=== PATIENT | male | born 1975 | race Caucasian/White ===

== ENCOUNTER 2017-08-20 18:36 | Emergency (ER) | payer BC, OTHER ==
[~2017-08-20] VITALS: Ht 180.3 cm; Wt 107.2 kg
[~2017-08-20 18:36] MED LIST: CLC100 PO; CPR500 PO; METR-163 PO
[2017-08-20 19:09] VITALS: Ht 180.3 cm; Wt 107.2 kg
[2017-08-20] MEDS ORDERED: SODIUM CHLORIDE 0.9% 1000ML 1,000 ML IV STA (20:09)
[2017-08-20] MEDS ORDERED: HYDROmorphone INJ 0.5 MG/0.5 ML SYR IV STA (20:17)
[2017-08-20] MEDS ORDERED: ONDANSETRON INJ 2 MG/ML 2 ML VIAL IV STA (20:17)
--- NOTE | 2017-08-20 20:23 | EMERGENCY ROOM VISIT NOTE ---
History Report prepared by Rodrigo: Wilberto Hathaway Under the Supervision of: Dr. Eduardo Saini M.D. First contact with patient: 20:02 Chief Complaint: ABDOMINAL PAIN Stated Complaint: ABDOMINAL PAIN UPPER LEFT Nursing Triage Summary: patient with history of diverticulitis. started with left sided abdominal pain with nausea no vomiting pain has gotten worse. patient has been constipated for the last couple of days History of Present Illness The patient is a 42 year old male who presents to the Emergency Room with complaints of worsening left lower quadrant abdominal pain beginning yesterday. The patient states his discomfort started yesterday with an upset stomach. He reports his pain worsened today at work. The patient notes he has a history of diverticulitis, and it feels very similar to his previous episode. He states he developed a fever of 100.8 degrees, but he did not take anything for it. The patient reports he feels constipated and tried stool softener. He notes it did not work, and he passed a little amount of black stool. The patient states he is also nauseous. He denies vomiting, diarrhea, bloody stool, chest pain, shortness of breath, and trauma. Source of History: patient Onset: yesterday Position: abdomen (LLQ) Timing: worsening Associated Symptoms: + fevers (100.8), + nausea, No chest pain, No SOB, No vomiting, No diarrhea Note: Associated symptoms: black stool Denies: blood stool and trauma Review of Systems See HPI for pertinent positives and negatives. A total of ten systems were reviewed and were otherwise negative. Past Medical & Surgical Medical Problems: (1) Diverticulitis Family History Patient reports no known family medical history. Social History Smoking Status: Former Smoker Marital Status: Housing Status: lives with family Occupation Status: employed Current/Historical Medications Scheduled Ciprofloxacin Hcl (Cipro), 500 MG PO BID Metronidazole (Flagyl), 500 MG PO TID Allergies Coded Allergies: No Known Allergies (Verified , 08/20/17) Physical Exam Vital Signs Date Time Temp Pulse Resp B/P (MAP) Pulse Ox O2 Delivery O2 Flow Rate FiO2 08/20/17 23:19 79 18 117/86 99 08/20/17 22:49 37.2 08/20/17 21:37 96 16 114/69 95 Room Air 08/20/17 20:51 95 20 134/80 94 Room Air 08/20/17 19:09 37.4 113 20 137/83 94 Room Air Physical Exam Physical Exam GENERAL: He is oriented to person, place, and time. He appears well-developed and well-nourished. He does not appear distressed. ____ HENT: Exam performed. Head: Normocephalic and atraumatic. Right Ear: External ear normal. No mastoid tenderness. Left Ear: External ear normal. No mastoid tenderness. Mouth/Throat: The oropharynx is clear and moist. No trismus in the jaw. No dental abscesses or uvula swelling. No oropharyngeal exudate or tonsillar abscesses. ____ EYES: Conjunctivae and EOM are normal. Pupils are equal, round, and reactive to light. Right eye exhibits no discharge. Left eye exhibits no discharge. No scleral icterus. ____ NECK: Normal range of motion. Neck supple. No JVD present. No spinous process tenderness present. No carotid bruit present. No rigidity. No tracheal deviation and normal range of motion present. No Brudzinski's sign and no Kernig 's sign noted. ____ CV: Tachycardic rate, regular rhythm, normal heart sounds and intact distal pulses. There is no peripheral edema. Palpable radial pulses bue. ____ PULM/CHEST: Effort normal and breath sounds normal. No respiratory distress. No stridor. He has no wheezes. He has no rales. Chest Wall: He exhibits no tenderness. ____ ABD: The abdomen is soft. Bowel sounds are normal. He has no distension. No mass is present. There is tenderness to palpation to the LLQ. There is no rebound, no guarding, no Simental's sign and no tenderness at McBurney's point. Rovsig negative : No inguinal hernia. RECTAL: No hemorrhoid or mass. Hemoccult negative. No bright red blood per rectum. MUSC/SKEL: Normal range of motion. There is no peripheral edema, tenderness or deformity. LYMPH: No cervical adenopathy. ____ NEURO: He is alert and oriented to person, place, and time. He has normal strength. No cranial nerve deficit or sensory deficit. Coordination and gait normal. GCS eye subscore is 4. GCS verbal subscore is 5. GCS motor subscore is 6. cerbellar tests wnl. ____ SKIN: Skin is warm and dry. He is not diaphoretic. ____ PSYCH: He has a normal mood and affect. His behavior is normal. Judgment and thought content normal. ____ Medical Decision & Procedures ER Provider Diagnostic Interpretation: Radiology results as stated below per my review and radiologist interpretation: ABDOMEN AND PELVIS CT WITH IV CONTRAST CT DOSE: 952.34 mGy.cm HISTORY: Acute left lower quadrant abdominal pain with fever llq pain "feels like my diverticulitis" fever 100.8 TECHNIQUE: Multiaxial CT images of the abdomen and pelvis were performed following the use of intravenous contrast. A dose lowering technique was utilized adhering to the principles of ALARA. COMPARISON STUDY: CT abdomen and pelvis 03/06/2006. FINDINGS: Lung bases are generally clear. There is no pneumatosis or pneumoperitoneum identified. Imaged inferior cardiac chambers are unremarkable. The liver, gallbladder, spleen, pancreas and adrenal glands are within normal limits. Kidneys, ureters, urinary bladder and prostate appear unremarkable. Small fat filled left inguinal hernia. Aorta is normal in course and caliber. No bulky adenopathy. There is no bowel obstruction. A few air-fluid levels are noted within nondilated bowel of the left lower abdomen suggesting reactive ileus. There is mild circumferential wall thickening of the mid descending colon with inflamed diverticula seen on images 216 and 231 of series 3 demonstrating mild surrounding inflammatory stranding. Moderate sigmoid diverticulosis. No evidence of perforation or abscess. Normal appendix. Soft tissues are unremarkable. Bones appear intact. Mild to moderate intervertebral disc space narrowing at L5-S1 with broad-based posterior disc osteophyte complex. IMPRESSION: 1. Findings compatible with acute uncomplicated diverticulitis of the mid descending colon . No evidence of perforation or abscess. 2. Minimal reactive ileus involves small bowel of the left lower abdomen and pelvis. No bowel obstruction. 3. Normal appendix. Electronically signed by: Nam Dong M.D. 08/20/2017 10:09 PM Dictated Date/Time: 08/20/2017 10:02 PM Laboratory Results 08/20/17 20:39 Red Blood Count 4.97, Mean Corpuscular Volume 87.9, Mean Corpuscular Hemoglobin 31.8, Mean Corpuscular Hemoglobin Concent 36.2, Mean Platelet Volume 11.0, Neutrophils (%) (Auto) 75.7, Lymphocytes (%) (Auto) 15.8, Monocytes (%) (Auto) 7.7, Eosinophils (%) (Auto) 0.4, Basophils (%) (Auto) 0.2, Neutrophils # (Auto) 9.13, Lymphocytes # (Auto) 1.91, Monocytes # (Auto) 0.93, Eosinophils # (Auto) 0.05, Basophils # (Auto) 0.02 08/20/17 20:39 Test 08/20/17 20:39 White Blood Count 12.06 K/uL (4.8-10.8) Red Blood Count 4.97 M/uL (4.7-6.1) Hemoglobin 15.8 g/dL (14.0-18.0) Hematocrit 43.7 % (42-52) Mean Corpuscular Volume 87.9 fL (80-100) Mean Corpuscular Hemoglobin 31.8 pg (25-34) Mean Corpuscular Hemoglobin Concent 36.2 g/dl (32-36) Platelet Count 238 K/uL (130-400) Mean Platelet Volume 11.0 fL (7.4-10.4) Neutrophils (%) (Auto) 75.7 % Lymphocytes (%) (Auto) 15.8 % Monocytes (%) (Auto) 7.7 % Eosinophils (%) (Auto) 0.4 % Basophils (%) (Auto) 0.2 % Neutrophils # (Auto) 9.13 K/uL (1.4-6.5) Lymphocytes # (Auto) 1.91 K/uL (1.2-3.4) Monocytes # (Auto) 0.93 K/uL (0.11-0.59) Eosinophils # (Auto) 0.05 K/uL (0-0.5) Basophils # (Auto) 0.02 K/uL (0-0.2) RDW Standard Deviation 40.7 fL (36.4-46.3) RDW Coefficient of Variation 12.8 % (11.5-14.5) Immature Granulocyte % (Auto) 0.2 % Immature Granulocyte # (Auto) 0.02 K/uL (0.00-0.02) Urine Color YELLOW Urine Appearance CLEAR (CLEAR) Urine pH 6.5 (4.5-7.5) Urine Specific [place] 1.013 (1.000-1.030) Urine Protein NEG (NEG) Urine Glucose (UA) NEG (NEG) Urine Ketones NEG (NEG) Urine Occult Blood NEG (NEG) Urine Nitrite NEG (NEG) Urine Bilirubin NEG (NEG) Urine Urobilinogen NEG (NEG) Urine Leukocyte Esterase NEG (NEG) Anion Gap 7.0 mmol/L (3-11) Est Creatinine Clear Calc Drug Dose 100.0 ml/min Estimated GFR () 85.7 Estimated GFR (Non- 73.9 BUN/Creatinine Ratio 11.1 (10-20) Calcium Level 9.5 mg/dl (8.5-10.1) Total Bilirubin 1.6 mg/dl (0.2-1) Aspartate Amino Transf (AST/SGOT) 16 U/L (15-37) Alanine Aminotransferase (ALT/SGPT) 37 U/L (12-78) Alkaline Phosphatase 81 U/L (45-117) Total Protein 7.8 gm/dl (6.4-8.2) Albumin 4.2 gm/dl (3.4-5.0) Globulin 3.6 gm/dl (2.5-4.0) Albumin/Globulin Ratio 1.2 (0.9-2) Lipase 142 U/L (73-393) Laboratory results reviewed by me Medications Administered Medications (Trade) Dose Ordered Sig/Bruce Route Start Time Stop Time Status Last Admin Dose Admin Sodium Chloride 1,000 ml @ 999 mls/hr Q1H1M STAT IV 08/20/17 20:09 08/20/17 21:09 DC 08/20/17 20:42 999 MLS/HR Hydromorphone HCl (Dilaudid Inj) 1 mg NOW STAT IV 08/20/17 20:17 08/20/17 20:19 DC 08/20/17 20:42 1 MG Ondansetron HCl (Zofran Inj) 4 mg NOW STAT IV 08/20/17 20:17 08/20/17 20:19 DC 08/20/17 20:42 4 MG Ciprofloxacin (Cipro Tab) 500 mg NOW STAT PO 08/20/17 22:54 08/20/17 22:56 DC 08/20/17 23:11 500 MG Metronidazole (Flagyl Tab) 500 mg NOW STAT PO 08/20/17 22:54 08/20/17 22:56 DC 08/20/17 23:11 500 MG Ciprofloxacin (Cipro 500MG Home Pack) 1 homepack UD ONCE PO 08/20/17 23:00 08/20/17 23:01 DC 08/20/17 23:11 1 HOMEPACK Metronidazole (Flagyl Tab) 1,000 mg NOW STAT PO 08/20/17 22:58 08/20/17 23:00 DC 08/20/17 23:12 1,000 MG ED Course 2009: Ordered Sodium Chloride 1000 ml @ 999 mls/hr IV 2010: The patient was evaluated in room A11B. A complete history and physical exam was performed. 2017: Ordered Ondansetron HCl 4mg IV, Hydromorphone HCl 1mg IV 4: I reevaluated the patient. Vital signs are stable. His CT scan showed diverticulitis without any complication. I discussed results with the patient and family at bedside. They state they do not wish to be admitted to medicine and would like to try outpatient treatment. I agree with this discission because the patient has been afebrile while in the department and only shows signs of mild leukocytosis. The patient will be discharge on antibiotics with his first dose being given in the ED. He will receive a homepack and a prescription. DISCHARGE - Plan of care discussed with patient and questions answered. The patient was given both verbal and printed discharge instructions. The patient verbalized understanding and ability to comply. The patient is to seek outpatient follow up as noted in the discharge instructions. The patient verbalized understanding and ability to comply. The patient is discharged in stable condition. The patient was instructed to return for worsening symptoms. 2254: Ordered Metronidazole 500mg PO, Ciprofloxacin 500mg PO Medical Decision Vital signs are stable. His CT scan showed diverticulitis without any complication. I discussed results with the patient and family at bedside. They state they do not wish to be admitted to medicine and would like to try outpatient treatment. I agree with this discission because the patient has been afebrile while in the department and only shows signs of mild leukocytosis. The patient will be discharge on antibiotics with his first dose being given in the ED. He will receive a homepack and a prescription. DISCHARGE - Plan of care discussed with patient and questions answered. The patient was given both verbal and printed discharge instructions. The patient verbalized understanding and ability to comply. The patient is to seek outpatient follow up as noted in the discharge instructions. The patient verbalized understanding and ability to comply. The patient is discharged in stable condition. The patient was instructed to return for worsening symptoms. Impression Primary Impression: Diverticulitis Scribe Attestation The scribe's documentation has been prepared under my direction and personally reviewed by me in its entirety. I confirm that the note above accurately reflects all work, treatment, procedures, and medical decision making performed by me. Departure Information Dispostion Home / Self-Care Prescriptions Metronidazole (Flagyl) 500 Mg Tab 500 MG PO TID for 7 Days, #21 TAB Prov: Eduardo Saini M.D. 08/20/17 Ciprofloxacin Hcl (CIPRO) 500 Mg Tab 500 MG PO BID, #14 TAB Prov: Eduardo Saini M.D. 08/20/17 Referrals [facility] Forms Call Back Authorization, HOME CARE DOCUMENTATION FORM, IMPORTANT VISIT INFORMATION Patient Instructions Diverticulitis Tho, My [facility] Additional Instructions Return to the emergency department if he develops fever greater than 100.4, inability to have bowel movements, or severe abdominal pain.
[2017-08-20 21:10] LABS: BASO % 0.2 %; BASO ABS # 0.02 K/uL (0-0.2); EOS % 0.4 %; EOS ABS # 0.05 K/uL (0-0.5); HEMATOCRIT 43.7 % (42-52); HEMOGLOBIN 15.8 g/dL (14.0-18.0); IG# 0.02 K/uL (0.00-0.02); LYMPH % 15.8 %; LYMPH ABS # 1.91 K/uL (1.2-3.4); MEAN CELL VOLUME 87.9 fL (80-100); MEAN CORPUSCULAR HEMOGLOBIN 31.8 pg (25-34); MEAN CORPUSCULAR HGB CONC 36.2 g/dl (32-36); MONO % 7.7 %; MONO ABS # 0.93 K/uL (0.11-0.59); NEUT % 75.7 %; NEUT ABS # 9.13 K/uL (1.4-6.5); PLATELET COUNT 238 K/uL (130-400); RED CELL DISTRIBUTION WIDTH CV 12.8 % (11.5-14.5); RED CELL DISTRIBUTION WIDTH SD 40.7 fL (36.4-46.3); WHITE BLOOD COUNT 12.06 K/uL (4.8-10.8)
[2017-08-20 21:26] LABS: ALBUMIN 4.2 gm/dl (3.4-5.0); CALCIUM 9.5 mg/dl (8.5-10.1); CREATININE 1.21 mg/dl (0.60-1.40); POTASSIUM 3.6 mmol/L (3.5-5.1)
[2017-08-20 21:29] LABS: TOTAL PROTEIN 7.8 gm/dl (6.4-8.2)
[2017-08-20] MEDS ORDERED: OPTIRAY 320 IV PRN (21:45)
--- NOTE | 2017-08-20 22:11 | DIAGNOSTIC IMAGING REPORT ---
ABDOMEN AND PELVIS CT WITH IV CONTRAST CT DOSE: 952.34 mGy.cm HISTORY: Acute left lower quadrant abdominal pain with fever llq pain "feels like my diverticulitis" fever 100.8 TECHNIQUE: Multiaxial CT images of the abdomen and pelvis were performed following the use of intravenous contrast. A dose lowering technique was utilized adhering to the principles of ALARA. COMPARISON STUDY: CT abdomen and pelvis 03/06/2006. FINDINGS: Lung bases are generally clear. There is no pneumatosis or pneumoperitoneum identified. Imaged inferior cardiac chambers are unremarkable. The liver, gallbladder, spleen, pancreas and adrenal glands are within normal limits. Kidneys, ureters, urinary bladder and prostate appear unremarkable. Small fat filled left inguinal hernia. Aorta is normal in course and caliber. No bulky adenopathy. There is no bowel obstruction. A few air-fluid levels are noted within nondilated bowel of the left lower abdomen suggesting reactive ileus. There is mild circumferential wall thickening of the mid descending colon with inflamed diverticula seen on images 216 and 231 of series 3 demonstrating mild surrounding inflammatory stranding. Moderate sigmoid diverticulosis. No evidence of perforation or abscess. Normal appendix. Soft tissues are unremarkable. Bones appear intact. Mild to moderate intervertebral disc space narrowing at L5-S1 with broad-based posterior disc osteophyte complex. IMPRESSION: 1. Findings compatible with acute uncomplicated diverticulitis of the mid descending colon . No evidence of perforation or abscess. 2. Minimal reactive ileus involves small bowel of the left lower abdomen and pelvis. No bowel obstruction. 3. Normal appendix. Electronically signed by: Nam Dong M.D. 08/20/2017 10:09 PM Dictated Date/Time: 08/20/2017 10:02 PM
[2017-08-20 22:49] VITALS: TEMP 37.2
[2017-08-20] MEDS ORDERED: CIPR-255 PO (22:53)
[2017-08-20] MEDS ORDERED: METR-163 PO (22:53)
[2017-08-20] MEDS ORDERED: CIPROFLOXACIN 500 MG TAB PO STA (22:54)
[2017-08-20] MEDS ORDERED: METRONIDAZOLE 250 MG TAB PO STA ×2 (22:54→22:58)
[2017-08-20] MEDS ORDERED: CIPROFLOXACIN 500MG HOME PACK PO ONE (23:00)
[2017-08-20] MEDS ORDERED: EMPTY 8 DRAM VIAL ONE (23:00)
[2017-08-20 23:19] VITALS: BP 117/86; PULSE 79; O2SAT 99
== END 2017-08-20 23:18 | disposition home or self-care (01) ==
LOC: C.EDB 18:38 → C.EDA 23:18
DX: K57.92 Diverticulitis of intestine, part unspecified, without perforation or abscess without bleeding (principal); Z87.891 Personal history of nicotine dependence